=== PATIENT | male | born 1995 | race Caucasian/White ===

== ENCOUNTER 2021-11-20 15:58 | Emergency (ER) | payer SELFPAY ==
[~2021-11-20] VITALS: Ht 185 cm; Wt 72.0 kg
--- NOTE | 2021-11-20 16:14 | ED General ---
General Chief Complaint: General Problems/Pain Stated Complaint: L SIDE PAIN,TROUBLE BREATHING History of Present Illness Date Seen by Provider: Nov 20, 2021 Time Seen by Provider: 16:05 Initial Comments 26-year-old male presents with left side lower rib pain. Patient reports that he was doing jujitsu/training for [employer] about a week 5 days ago when he got injured. He continues to have some pain and some pain with taking a breath so he came in to be evaluated. Patient has not tried anything for the pain. Patient reports that he has pain when he tries take a deep breath. No other systemic complaints Allergies and Home Medications Allergies Coded Allergies: No Known Allergies (Verified Allergy, Unknown, 11/20/21) Patient Home Medication List Home Medication List Reviewed: Yes Review of Systems Review of Systems Constitutional: no symptoms reported EENTM: no symptoms reported Respiratory: see HPI Cardiovascular: see HPI Gastrointestinal: no symptoms reported Genitourinary: no symptoms reported Musculoskeletal: no symptoms reported Skin: no symptoms reported Psychiatric/Neurological: No Symptoms Reported Hematologic/Lymphatic: No Symptoms Reported Physical Exam Vital Signs Vital Signs - First Documented 11/20/21 16:19 Temp 36.1 Pulse 82 Resp 16 B/P (MAP) 152/85 (107) Pulse Ox 100 Capillary Refill : Height, Weight, BMI Height: '" Weight: lbs. oz. kg; BMI Method: General Appearance: No Apparent Distress, WD/WN HEENT: PERRL/EOMI Neck: Full Range of Motion, Normal Inspection, Supple Respiratory: Lungs Clear, Normal Breath Sounds, Other (Tenderness to left lower ribs) Cardiovascular: Regular Rate, Rhythm, No Edema Gastrointestinal: Non Tender, Soft Extremity: Normal Capillary Refill, Normal Inspection, Normal Range of Motion Neurologic/Psychiatric: Alert, Oriented x3, No Motor/Sensory Deficits, Normal Mood/Affect, store standards associate II-XII Norm as Tested Skin: Normal Color, Warm/Dry Progress/Results/Core Measures Suspected Sepsis SIRS Temperature: Pulse: Respiratory Rate: Blood Pressure / Mean: Results/Orders My Orders Orders - RICA SANCHEZ L DO Ribs/Unilateral With Chest (11/20/21 16:06) Vital Signs/I&O 11/20/21 16:19 Temp 36.1 Pulse 82 Resp 16 B/P (MAP) 152/85 (107) Pulse Ox 100 Capillary Refill : Progress Note : Progress Note Patient's x-ray shows no acute fractures or findings. Patient likely with a abdominal wall/rib contusion. Discussed with him topical lidocaine Tylenol and ibuprofen since he is not training for pain yet. Patient was stable and discharged Diagnostic Imaging Diagonstic Imaging: Xray Plain Films/CT/US/NM/MRI: chest Comments Date of Exam:11/20/21 RIBS/UNILATERAL WITH CHEST CLINICAL INDICATION: Patient with left lower rib pain. EXAMS: Chest x-ray AP and lateral views. X-ray left rib series. COMPARISONS: None. FINDINGS: LUNGS/ PLEURA: Lungs are clear. There is no pneumothorax. There is no pleural effusion. MEDIASTINUM: Unremarkable. PULMONARY VASCULATURE: Unremarkable. HEART: Unremarkable. BONES/ EXTRATHORACIC SOFT TISSUE: Unremarkable. RIB SERIES: There is no rib fracture or abnormality. IMPRESSION: 1: There is no radiographic evidence of acute cardiopulmonary process. 2: There are no rib fractures. Departure Impression Primary Impression: Contusion of left chest wall Qualified Codes: S20.212A - Contusion of left front wall of thorax, initial encounter Disposition: 01 HOME, SELF-CARE Condition: Stable Departure-Patient Inst. Referrals: NO,LOCAL PHYSICIAN (PCP/Family) Primary Care Physician Patient Instructions: Bruised Rib (DC), Contusion (DC) Add. Discharge Instructions: Tylenol ibuprofen every 6-8 hours as needed for 4% topical lidocaine with menthol cream gel or patch, use as directed on package as needed for pain Warm moist heat for 20 minutes 3-4 times daily All discharge instructions reviewed with patient and/or family. Voiced understanding. RICA SANCHEZ DO Nov 20, 2021 16:13
[2021-11-20 16:19] VITALS: BP 152/85
--- NOTE | 2021-11-20 16:25 | Diagnostic Imaging Report ---
CLINICAL INDICATION: Patient with left lower rib pain. EXAMS: Chest x-ray AP and lateral views. X-ray left rib series. COMPARISONS: None. FINDINGS: LUNGS/ PLEURA: Lungs are clear. There is no pneumothorax. There is no pleural effusion. MEDIASTINUM: Unremarkable. PULMONARY VASCULATURE: Unremarkable. HEART: Unremarkable. BONES/ EXTRATHORACIC SOFT TISSUE: Unremarkable. RIB SERIES: There is no rib fracture or abnormality. IMPRESSION: 1: There is no radiographic evidence of acute cardiopulmonary process. 2: There are no rib fractures. Dictated by: Dictated on workstation # [id number]
== END 2021-11-20 16:40 | disposition home or self-care (01) ==
LOC: ER FS 16:00
DX: S20.212A Contusion of left front wall of thorax, initial encounter (principal); X58.XXXA Exposure to other specified factors, initial encounter; Y93.75 Activity, martial arts
CPT/HCPCS: 71101